=== PATIENT | male | born 1960 | race African-American/Black ===

== ENCOUNTER → 2016-12-09 | Outpatient (CLI) | payer SELFPAY ==
--- NOTE | 2016-12-10 07:52 | ECHOF ---
DATE OF PROCEDURE December 09, [address] Zaira Cox This is a two-dimensional echo with spectral Doppler, color-flow and M-mode. It was obtained in a patient with congestive heart failure. This is a technically very difficult study and limited information can be obtained from this echo. Left atrium appears to be normal in dimension. Left ventricle end-diastolic dimension is normal. Left ventricular wall thickness is normal. Aortic root dimension is increased at 4.2 cm. Right atrium is normal. Right ventricle is normal. Mitral valve was not visualized well. Aortic valve was not visualized. Tricuspid valve was not visualized. Pulmonary valve was not visualized. Doppler studies indicate no valvular stenosis or insufficiency. There is no pericardial effusion. Grossly LV function appears to be normal in the range of 50% ejection fraction. IMPRESSION 1. Technically very difficult study and limited information can be obtained from the study. 2. Grossly LV function is normal with ejection fraction of around 50%. 3. Aortic root dilation. MTDD
== END ==
LOC: IMA 10:48
PROVIDERS: ATTEND Family Medicine
DX: R93.1 Abnormal findings on diagnostic imaging of heart and coronary circulation (principal)
CPT/HCPCS: 93306